=== PATIENT | male | born 1960 | race Caucasian/White ===

== ENCOUNTER 2018-05-23 18:13 | Emergency (ER) | payer OTHER ==
[~2018-05-23] VITALS: Ht 177.8 cm; Wt 79.4 kg
[2018-05-23 20:31] VITALS: BP 103/59
== END 2018-05-23 20:30 | disposition home or self-care (01) ==
LOC: ER 18:13
DX: T17.920A Food in respiratory tract, part unspecified causing asphyxiation, initial encounter (principal); R05 Cough; F32.9 Major depressive disorder, single episode, unspecified; F41.9 Anxiety disorder, unspecified; I10 Essential (primary) hypertension; Z88.8 Allergy status to other drugs, medicaments and biological substances; X58.XXXA Exposure to other specified factors, initial encounter; Y92.89 Other specified places as the place of occurrence of the external cause; Y93.89 Activity, other specified; Y99.8 Other external cause status

== ENCOUNTER 2018-09-08 18:49 | Emergency (ER) | payer OTHER ==
[~2018-09-08] VITALS: Ht 177.8 cm; Wt 79.4 kg
--- NOTE | ~2018-09-08 | EKG ---
[address] [address] ELECTROCARDIOGRAM REPORT Name: SLIMEDELANEY Room #: DEP SHEMAR Sheridan#: [id number] Admission: 09/08/18 Attend Phys: Discharge: 09/08/18 Date of : 64 Report #: [id number] THIS REPORT FOR: //name// [facility] ED Test Date: 2018-09-08 Test Time: 21:06:22 Pat Name: DELANEY PALENCIA Department: Room: Gender: [employer]: : [id number] Requested By: Heather Fuller Order Number: [id number] MD: Sami Webster Measurements Intervals Thomson Rate: 74 P: 34 AR: 127 QRS: 3 QRSD: 93 T: 17 QT: 380 QTc: 422 Interpretive Statements Sinus rhythm Normal tracing No previous ECG available for comparison Electronically Signed On 09-09-2018 17:11:29 CDT by Sami Webster [email or web address] <ELECTRONICALLY SIGNED> By: Sami Webster MD, [facility] 09/09/18 1711 [id number] Sami Webster MD, FACC /EPI
[~2018-09-08 18:49] MED LIST: ALLERGY RELIEF10 M5 PO; CLOZAPINE200 MG PO; DEPAKOTE 250MG250 M1 PO; MELATONIN3 MG PO; REMERON15 MG PO; TRAZODONE HCL50 MG PO; VITAMIN D5000 UNIT PO; ZYPREXA ZYDIS5 MG PO; ZYPREXA5 MG
[2018-09-08 19:38] LABS: ABSOLUTE NEUTROPHILS 5.8 thou/uL (1.4-8.2); BASOPHILS 0.3 % (0.0-2.0); EOSINOPHILS 0.9 % (0.0-3.0); HEMOGLOBIN 12.4 gm/dL (14.0-18.0); LYMPHOCYTES 9.7 % (24.0-44.0); MCH 32.1 pg (26.0-34.0); MCHC 33.5 g/dL (28.0-37.0); MCV 95.8 fL (80.0-100.0); MONOCYTES 9.6 % (1.0-8.0); POLYS 79.5 % (36.0-66.0); RBC 3.87 mil/uL (4.50-6.00); RDW 13.3 % (10.5-14.5); WBC 7.3 thou/uL (4.0-11.0)
[2018-09-08 19:51] LABS: CALCIUM 8.5 mg/dL (8.5-10.1); CREATININE 1.5 mg/dL (0.7-1.3); POTASSIUM 4.3 mmol/L (3.5-5.1); PROTIME 10.2 Seconds (9.3-11.4)
[2018-09-08 19:56] LABS: ALBUMIN 3.5 g/dL (3.4-5.0); TOTAL BILIRUBIN 0.2 mg/dL (<0.1-1.0); TOTAL PROTEIN 6.7 g/dL (6.4-8.2)
[2018-09-08 19:57] LABS: PLATELET COUNT 146 thou/uL (150-400)
[2018-09-08] MEDS ORDERED: KEFLEX500 M1 PO (21:43)
[2018-09-08 23:07] VITALS: BP 105/72
== END 2018-09-08 23:08 | disposition home or self-care (01) ==
LOC: ER 18:49
PROVIDERS: Physician Assistant
DX: S01.81XA Laceration without foreign body of other part of head, initial encounter (principal); I95.9 Hypotension, unspecified; Z23 Encounter for immunization; F20.9 Schizophrenia, unspecified; F41.9 Anxiety disorder, unspecified; I10 Essential (primary) hypertension; Z88.8 Allergy status to other drugs, medicaments and biological substances; W22.01XA Walked into wall, initial encounter; Y92.89 Other specified places as the place of occurrence of the external cause; Y93.89 Activity, other specified; Y99.8 Other external cause status

== ENCOUNTER 2019-09-20 18:12 | Emergency (ER) | payer OTHER ==
[~2019-09-20] VITALS: Ht 177.8 cm; Wt 81.7 kg
[~2019-09-20 18:12] MED LIST changes: +KEFLEX500 M1 PO
[2019-09-20 21:24] VITALS: BP 134/85
== END 2019-09-20 21:25 ==
LOC: ER 18:12
DX: S01.112A Laceration without foreign body of left eyelid and periocular area, initial encounter (principal); I10 Essential (primary) hypertension; F20.9 Schizophrenia, unspecified; F41.9 Anxiety disorder, unspecified; Z88.8 Allergy status to other drugs, medicaments and biological substances; Y04.8XXA Assault by other bodily force, initial encounter; Y93.89 Activity, other specified; Y92.128 Other place in nursing home as the place of occurrence of the external cause; Y99.8 Other external cause status

== ENCOUNTER 2020-01-29 17:13 | Emergency (ER) | payer OTHER ==
[~2020-01-29] VITALS: Ht 177.8 cm; Wt 81.7 kg
[2020-01-29 20:21] VITALS: BP 94/67
== END 2020-01-29 20:24 | disposition home or self-care (01) ==
LOC: ER 17:13
DX: S01.81XA Laceration without foreign body of other part of head, initial encounter (principal); I10 Essential (primary) hypertension; Z79.899 Other long term (current) drug therapy; Y08.89XA Assault by other specified means, initial encounter; Y93.89 Activity, other specified; Y92.89 Other specified places as the place of occurrence of the external cause; Y99.8 Other external cause status